=== PATIENT | male | born 1945 | race Caucasian/White ===

== ENCOUNTER 2019-03-27 19:01 | Inpatient (IN) | payer MEDICARE, OTHER ==
[~2019-03-27] VITALS: Ht 180.3 cm; Wt 76.9 kg
[~2019-03-27 19:01] MED LIST: HYDROCODONE-AP1 EAC6 PO; TAMIFLU45 MG PO; TUSSIONEX PENN473 ML PO; VENTOLIN17 GM INH
[2019-03-27 19:04] VITALS: BP 102/59
[2019-03-27] MEDS ORDERED: CARBIDOPA-LEVO1 EA10 PO (19:09)
[2019-03-27 19:38] LABS: ABSOLUTE EOSINOPHILS 0.1 thou/uL (0.0-0.7); ABSOLUTE LYMPHOCYTES 1.2 thou/uL (0.8-5.3); ABSOLUTE MONOCYTES 0.5 thou/uL (0.0-1.2); BASOPHILS 0.6 %; EOSINOPHILS 1.5 %; HEMATOCRIT 40.2 % (42.0-52.0); HEMOGLOBIN 13.4 gm/dL (14.0-18.0); MCH 30.7 pg (26.0-34.0); MCHC 33.4 g/dL (28.0-37.0); MCV 91.7 fL (80.0-100.0); MONOCYTES 8.8 %; MPV 7.4 fl. (7.2-11.1); NUCLEATED RBCS 0 /100WBC; PLATELET COUNT* 223 thou/uL (150-400); POLYS 69.1 %; RBC 4.38 mil/uL (4.50-6.00); RDW-CV 13.2 % (10.5-14.5); WBC 5.8 thou/uL (4.0-11.0)
[2019-03-27 19:42] LABS: URINE BILIRUBIN NEGATIVE (Negative); URINE BLOOD NEGATIVE (Negative); URINE CLARITY CLEAR; URINE COLOR YELLOW; URINE GLUCOSE-RANDOM NEGATIVE (Negative); URINE KETONES 1+ (Negative); URINE LEUKOCYTES-REFLEX NEGATIVE (Negative); URINE NITRITE-REFLEX NEGATIVE (Negative); URINE PROTEIN NEGATIVE (Negative); URINE SPECIFIC GRAVITY 1.025 (1.005-1.030); URINE UROBILINOGEN 0.2 E.U./dl (0.2-1.0)
[2019-03-27 19:44] LABS: CALCIUM 8.7 mg/dL (8.5-10.1); CREATININE 1.1 mg/dL (0.6-1.3); POTASSIUM 4.1 mmol/L (3.5-5.1)
[2019-03-27 19:45] LABS: PROTIME 10.7 Seconds (9.20-11.50)
[2019-03-27 19:54] LABS: ALBUMIN 3.8 g/dL (3.4-5.0); TOTAL BILIRUBIN 0.4 mg/dL (<0.1-1.0); TOTAL PROTEIN 6.7 g/dL (6.4-8.2)
[2019-03-27 23:14] VITALS: BP 121/58
[2019-03-28] VITALS (8 sets, daily range): BP systolic 112–142; BP diastolic 64–80
--- NOTE | 2019-03-28 04:59 | NUR ---
RECEIVED REPORT FROM ED RN. PT TRANSFERRED TO 215. PT A&OX4. 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 ADMISSION HISTORY & PHYSICAL ASSESSMENT COMPLETED AND CHARTED. PT ON RA. PT TRACING SR/BBB ON TELE. SKIN TEAR TO LEFT HAND CLEANED & PAT DRY, PHOTOGRAPH TAKEN & COVERED WITH MEPILEX. PT TURNED TO SIDES. CALL LIGHT WITHIN REACH.
--- NOTE | 2019-03-28 12:59 | NUR ---
PT A/O. TELE TRACKING SR WITH BBB AND ALL VSS ON ROOM AIR. DENIES CP, SOA. MULTIPLE FAMILY MEMBERS AT BEDSIDE. EDUCATED ON SAFETY AND PLAN OF CARE. PLEASE SEE ASSESSMENT FOR ADDITIONAL INFORMATION. WILL CONT TO MONITOR
--- NOTE | 2019-03-28 15:14 | NUR ---
Pt out of room when CM went to assess, will f/u later
--- NOTE | 2019-03-28 17:12 | 2DMMODE ---
[place] [address] 2 D/M-MODE ECHOCARDIOGRAM Name: BRENDAN KIRKPATRICK Room: [address] IN [facility]#: [id number] Admission: 03/27/19 Attend Phys: Jessie Villalpando, Discharge: Date of : 43 Date of Service: 03/28/19 1711 Report #: [id number] THIS REPORT FOR: //name// APPROVED REPORT Study performed: 03/28/2019 14:04:56 EXAM: Comprehensive 2D, Doppler, and color-flow Echocardiogram Patient Location: In-Patient Room #: [facility] [place] BSA: 2.15 HR: 70 bpm Other Information Study Quality: Good Indications Syncope 2D Dimensions IVSd: 9.18 (7-11mm) LVOT Diam: 20.69 (18-24mm) LVDd: 50.87 mm PWd: 11.92 (7-11mm) Ascending Ao: 34.56 (22-36mm) LVDs: 24.90 (25-40mm) Aortic Root: 38.52 mm Volumes Left Atrial Volume (Systole) LA ESV Index: 17.80 mL/m2 Aortic Valve AoV Peak Jin.: 1.14 m/s AO Peak Gr.: 5.22 mmHg LVOT Max P.41 mmHg AO Mean Gr.: 2.87 mmHg LVOT Mean P.90 mmHg LVOT Max V: 1.05 m/s AO V2 VTI: 21.55 cm LVOT Mean V: 0.62 m/s SARBJIT (VTI): 2.91 cm2 LVOT V1 VTI: 18.66 cm Mitral Valve E/A Ratio: 0.70 MV Decel. Time: 321.15 ms MV E Max Jin.: 0.55 m/s MV PHT: 93.13 [place] [address] 2 D/M-MODE ECHOCARDIOGRAM Name: BRENDAN KIRKPATRICK Room: [address]#: [id number] Admission: 03/27/19 Attend Phys: Jessie Villalpando, Discharge: Date of : 43 Date of Service: 03/28/19 1711 Report #: [id number] MVA (PHT): 2.36 cm2 TDI E/Lateral E': 9.17 E/Medial E': 6.11 Medial E' Jin.: 0.09 m/s Lateral E' Jin.: 0.06 m/s Pulmonary Valve PV Peak Jin.: 0.86 m/s PV Peak Gr.: 2.93 mmHg Left Ventricle The left ventricle is normal size. There is normal LV segmental wall motion. There is normal left ventricular wall thickness. Left ventricular systolic function is normal. The left ventricular ejection fraction is within the normal range. LVEF is 55-60%. Grade I - abnormal relaxation pattern. Right Ventricle The right ventricle is normal size. The right ventricular systolic function is normal. Atria The left atrium size is normal. The right atrium size is normal. Aortic Valve Aortic valve is mildly calcified. No aortic regurgitation is present. There is no aortic valvular stenosis. Mitral Valve The mitral valve is normal in structure. There is no mitral valve regurgitation noted. No evidence of mitral valve stenosis. Tricuspid Valve The tricuspid valve is normal in structure. There is no tricuspid valve regurgitation noted. Pulmonic Valve The pulmonary valve is normal in structure. There is no pulmonic valvular regurgitation. Great Vessels The aortic root is normal in size. IVC is normal in size and collapses >50% with inspiration[place] [address] 2 D/M-MODE ECHOCARDIOGRAM Name: BRENDAN KIRKPATRICK Room: [address]#: [id number] Admission: 03/27/19 Attend Phys: Jessie Villalpando, Discharge: Date of : 43 Date of Service: 03/28/19 1711 Report #: [id number] There is no pericardial effusion. <Conclusion> The left ventricle is normal size. There is normal left ventricular wall thickness. Left ventricular systolic function is normal. The left ventricular ejection fraction is within the normal range. LVEF is 55-60%. Grade I - abnormal relaxation pattern. The right ventricle is normal size. The left atrium size is normal. Aortic valve is mildly calcified. No aortic regurgitation is present. There is no aortic valvular stenosis. The mitral valve is normal in structure. The tricuspid valve is normal in structure. IVC is normal in size and collapses >50% with inspiration. There is no pericardial effusion. There is normal LV segmental wall motion. <ELECTRONICALLY SIGNED> By: Reji Awan MD, [facility] 03/28/191710 10 10 Reji Awan MD, FACC /INF
--- NOTE | 2019-03-28 17:15 | EKG ---
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1945 Requested By: Kathy Brantley Order Number: [id number] MD: Bolivar Verdin Measurements Intervals [place] Rate: 57 P: 59 IN: 58 QRS: -50 QRSD: 154 T: 32 QT: 457 QTc: 445 Interpretive Statements 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
[2019-03-29] VITALS: BP 146/40
--- NOTE | 2019-03-29 06:32 | NUR ---
PT HAS MAINTAINED SAFETY T/O NIGHT AND WITHOUT PAIN. PT PROGRESSING TOWARDS GOALS
[2019-03-29 07:00] VITALS: BP 141/75
[2019-03-29 08:44] VITALS: BP 141/75
[2019-03-29 12:00] VITALS: BP 121/78
--- NOTE | 2019-03-29 14:10 | NUR ---
cm discussed home situation w/pt's spouse Margarette, as pt was out of room for testing. Margarette states pt lives at home w/her. pt is retired, but active, "he cant sit sitll." pt has no hx w/snf or hh. pt has 0 dmes. no anticipated needs at this time. cm will cont to follow.
[2019-03-29 16:00] VITALS: BP 112/91
--- NOTE | 2019-03-29 16:58 | CARDNUC ---
[place] [address] CARDIAC NUCLEAR IMAGING REPORT Name: BRENDAN KIRKPATRICK Room: [address]#: [id number] Admission: 03/27/19 Attend Phys: Jessie Villalpando, Discharge: Date of : 43 Date of Service: 03/29/19 1658 Report #: [id number] THIS REPORT FOR: //name// APPROVED REPORT Study performed: 03/28/2019 14:46:00 Indication: Dyspnea, Syncope, weakness Patient Location: In-Patient Room #: [facility] Stress Tech: Coreen Suh Stress Nurse: Dodie Kasper RN Ht: 5 ft 11 in Wt: 169 lbs BSA: 1.96 m2 BMI: 23.56 Medical History Medical History: parkinsons Medications: no cardiac meds Allergies: rosuvastatin Cardiac Risk Factors: age, fmaily hx Previous Cardiac Procedures: none Exercise History: Sedentary Resting Data Rest SPECT myocardial perfusion imaging was performed in supine position 30 minutes following the intravenous injection of 11.4 mCi of Tc-99m Sestamibi. Time of rest injection: 09:05 The images were gated to evaluate regional wall motion and calculate left ventricular ejection fraction. Administration Route: IV Administration Site: Left AC Pharmacologic Stress Pharmacologic stress test was performed by injecting Regadenoson 0.4 mg IV push over 10-15 seconds immediately followed by the intravenous injection of 34.0 mCi of Tc-99m Sestamibi. Time of stress injection: 10:45 Administration Route: IV Administration Site: Left AC Heart Rate at time of stress injection: 96 bpm. Gated Stress SPECT was performed 40 minutes after stress injection. The images were gated to evaluate regional [place] [address] CARDIAC NUCLEAR IMAGING REPORT Name: BRENDAN KIRKPATRICK Room: [address]#: [id number] Admission: 03/27/19 Attend Phys: Jessie Villalpando, Discharge: Date of : 43 Date of Service: 03/29/19 1658 Report #: [id number] left ventricular ejection fraction. Prone imaging was performed. Stress Test Details Stress Test: Pharmacologic stress testing performed using 0.4 mg of regadenoson per 5 mL given IV over 10 seconds. Reason for pharmacologic stress test: physical limitation. HR Max Heart Rate (APMHR): 146 bpm Resting HR: 72 bpm Target HR (85% APMHR): 124 bpm Max HR Achieved: 96 bpm % of APMHR: 65 Recovery HR: 91 bpm BP Resting BP: 125/91 mmHg Max BP: 121/60 mmHg Recovery BP: 122/62 mmHg ECG Resting ECG: Sinus Rhythm, RBBB Stress ECG: Sinus Rhythm, RBBB ST Change: None Arrhythmia: None Recovery ECG: Sinus Rhythm, RBBB Recovery ST Change: None Recovery Arrhythmia: None Clinical Reason for Termination: Completed protocol Exercise duration: 0 min sec Exercise capacity: 1 METs The patient tolerated Lexiscan infusion without significant cardiac symptoms. Nurse Comments pt has parkinson's and so is unable to walk on treadmill Stress ECG Conclusion The baseline 12-lead EKG showed sinus rhythm with right bundle branch block without significant ST segment abnormalities. EKGs obtained during and post Lexiscan infusion showed sinus rhythm with no significant ST segment changes when compared to baseline. There were no stress-induced arrhythmias. Study Quality Study: [place] [address] CARDIAC NUCLEAR IMAGING REPORT Name: BRENDAN KIRKPATRICK Room: [address] IN [facility]#: [id number] Admission: 03/27/19 Attend Phys: Jessie Villalpando, Discharge: Date of : 43 Date of Service: 03/29/19 1658 Report #: [id number] Artifact: Moderate Diaphragmatic artifact Study Data At rest, the left ventricular ejection fraction was 59%.. Post stress, the left ventricular ejection was 62%.. TID = 1.11. Perfusion Perfusion images obtained in the supine position at rest and post Lexiscan stress showed a large region of photopenia involving the inferior wall the results completely with post stress prone imaging suggesting diaphragmatic attenuation artifact. No other significant fixed or reversible defects were identified. Wall Motion Normal left ventricular wall motion. Nuclear Conclusion ECG Findings: negative for ischemia Clinical Findings: negative for ischemia Nuclear Findings: negative for ischemia Exercise Capacity: not assessed Left Ventricular Function: normal Risk Study: low Myocardial perfusion images showed no defect to suggest infarct or ischemia. Left ventricular systolic function is normal on gated studies. This is a low risk study. <Conclusion> The baseline 12-lead EKG showed sinus rhythm with right bundle branch block without significant ST segment abnormalities. EKGs obtained during and post Lexiscan infusion showed sinus rhythm with no significant ST segment changes when compared to baseline. There were no stress-induced arrhythmias. <ELECTRONICALLY SIGNED> By: Bolivar Verdin MD, FACC 03/29/198 57 57 Bolivar Verdin MD, FACC /INF
[2019-03-29 20:00] VITALS: BP 127/74
[2019-03-30 00:08] VITALS: BP 144/84
[2019-03-30 04:00] VITALS: BP 152/91
[2019-03-30 08:00] VITALS: BP 143/78
[2019-03-30 12:19] VITALS: BP 119/75
[2019-03-30 13:11] VITALS: BP 119/75
--- NOTE | 2019-03-30 14:11 | NUR ---
DISCHARGE EDUCATION GIVEN, PT LEFT THE UNIT AT 1407 IN A WHEELCHAIR WITH HIS FAMILY.
--- NOTE | 2019-03-31 12:46 | CON ---
[address] [address] CONSULTATION Name: BRENDAN KIRKPATRICK Room: [address] IN .R.#: [id number] Admission: 03/27/19 Attend Phys: Jessie Villalpando MD Discharge: 03/30/19 Date of : 43 Report #: [id number] THIS REPORT FOR: //name// CC: Jessie Nolan DATE OF SERVICE: 03/28/2019 HISTORY OF PRESENT ILLNESS: This is a 73-year-old male patient who was seen by me to determine any neurological etiology for the patient's syncope. This patient was eating. He was sitting and he became pale. He became diaphoretic. He did not have any tonic-clonic activity and looks like he passed out for a short duration of time. The episode happened spontaneously. He may have some dizziness in the past, but never had this kind of episode before. He is back to his baseline. REVIEW OF SYSTEMS: Indicate the patient has been progressively losing memory. He had some pain in the neck area when it happened. He is becoming short of breath recently. He denies any prior history of stroke. He has not been diagnosed with dementia officially, but as I understand, they have suspected that because of progressive loss and memory, he does have a tendency to fall. He is not complaining of any new eye, ENT, GI, , musculoskeletal, constitutional, dermatological, hematological, psychiatric, throat, allergic symptom associated with present symptomatology. PAST MEDICAL HISTORY: Positive for memory loss. FAMILY HISTORY: Negative for any early age stroke. SOCIAL HISTORY: He has a very supportive family and he does not use any alcohol or smoke. PHYSICAL EXAMINATION: GENERAL: He is alert. He is responsive. His memory is poor, but that is his baseline. His speech, concentration, fund of knowledge and memory is intact. Cranial nerve examination 2-12 looks unremarkable. Strength, sensation, reflexes and tone appears symmetrical, although it is somewhat increased. He does have a history of Parkinson disease. I am not sure how established the diagnosis is. I could not look at the fundus. There is no meningeal sign. There is no thyroid mass. He is a reasonably well-developed individual, who does not have any dysmorphic features of eyes, ears and face. His vision and hearing looks intact. Cardiac examinations appear unremarkable. No respiratory difficulty was noticed. His blood pressure is 135/76, pulse is 83, temperature is 98.1, and respiration is 16. His blood pressure has fluctuated to some extent. He did have a CT scan of the head on admission that [place] [address] CONSULTATION Name: BRENDAN KIRKPATRCIK Room: [address]#: [id number] Admission: 03/27/19 Attend Phys: Jessie Villalpando MD Discharge: 03/30/19 Date of : 43 Report #: [id number] IMPRESSION: This patient does have underlying dementia. He had this episode which may be vasovagal episode or something related to his heart. History is not very clear and it is desirable to rule out the possibility of neurological etiology. I will get an MRI/MRA and an EEG done because of memory disturbances. I will add TSH, vitamin B12. Cardiology is consulted and he will undergo cardiac workup because cardiac etiology appear to be more likely. We will follow the patient with you. Thank you very much for this referral. <ELECTRONICALLY SIGNED> By: Ankit Camarillo MD 03/31/19 1246 1402 [id number] Camarillo MD /nt
== END 2019-03-30 13:40 | disposition home or self-care (01) | DRG 57 ==
LOC: M.ERS 19:01 → M.TBA-ER 22:09 → M.2W 22:20 → M.TBA-ER 22:20 → M.2W 23:15
PROVIDERS: Emergency Medicine; ADMIT Internal Medicine
DX: G91.2 (Idiopathic) normal pressure hydrocephalus (principal); J98.11 Atelectasis; G20 Parkinson's disease; G30.9 Alzheimer's disease, unspecified; F02.80 Dementia in other diseases classified elsewhere, unspecified severity, without behavioral disturbance, psychotic disturbance, mood disturbance, and anxiety; G31.9 Degenerative disease of nervous system, unspecified; N18.9 Chronic kidney disease, unspecified; E78.5 Hyperlipidemia, unspecified; Z88.8 Allergy status to other drugs, medicaments and biological substances; Z82.49 Family history of ischemic heart disease and other diseases of the circulatory system; Z79.899 Other long term (current) drug therapy

== ENCOUNTER 2020-06-04 08:34 | Emergency (ER) | payer MEDICARE, OTHER ==
[~2020-06-04] VITALS: Ht 172.7 cm; Wt 85.3 kg
[~2020-06-04 08:34] MED LIST changes: +CARBIDOPA-LEVO1 EA10 PO
[2020-06-04 09:24] LABS: ABSOLUTE EOSINOPHILS 0.1 thou/uL (0.0-0.7); ABSOLUTE LYMPHOCYTES 0.9 thou/uL (0.8-5.3); ABSOLUTE MONOCYTES 0.5 thou/uL (0.0-1.2); ABSOLUTE NEUTROPHILS 3.6 thou/uL (1.6-8.1); BASOPHILS 0.4 %; EOSINOPHILS 1.5 %; HEMATOCRIT 42.3 % (42.0-52.0); HEMOGLOBIN 14.1 gm/dL (14.0-18.0); LYMPHOCYTES 17.9 %; MCH 30.5 pg (26.0-34.0); MCHC 33.3 g/dL (28.0-37.0); MCV 91.6 fL (80.0-100.0); MONOCYTES 9.4 %; NUCLEATED RBCS 0 /100WBC; PLATELET COUNT* 214 thou/uL (150-400); POLYS 70.8 %; RBC 4.62 mil/uL (4.50-6.00); RDW-CV 13.5 % (10.5-14.5); WBC 5.1 thou/uL (4.0-11.0)
[2020-06-04 09:32] LABS: CALCIUM 9.5 mg/dL (8.5-10.1); CREATININE 1.1 mg/dL (0.6-1.3); POTASSIUM 3.8 mmol/L (3.5-5.1)
[2020-06-04 09:36] LABS: ALBUMIN 4.7 g/dL (3.4-5.0); TOTAL BILIRUBIN 0.6 mg/dL (<0.1-1.0); TOTAL PROTEIN 7.9 g/dL (6.4-8.2)
[2020-06-04] MEDS ORDERED: FLOMAX0.4 MG PO (10:36)
[2020-06-04] MEDS ORDERED: CIPROFLOXACIN500 M1 PO (10:36)
[2020-06-04 10:51] LABS: URINE BILIRUBIN NEGATIVE (Negative); URINE BLOOD NEGATIVE (Negative); URINE CLARITY CLEAR; URINE COLOR YELLOW; URINE GLUCOSE-RANDOM NEGATIVE (Negative); URINE KETONES NEGATIVE (Negative); URINE LEUKOCYTES-REFLEX NEGATIVE (Negative); URINE NITRITE-REFLEX NEGATIVE (Negative); URINE PROTEIN NEGATIVE (Negative); URINE UROBILINOGEN 0.2 E.U./dl (0.2-1.0)
[2020-06-04 10:54] VITALS: BP 117/64
--- NOTE | 2020-06-05 14:23 | EKG ---
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 : 1945 Requested By: Campos Edouard Order Number: [id number] MD: Reji Awan Measurements Intervals [place] Rate: 63 P: 41 [place]: 196 QRS: -48 QRSD: 159 T: 35 QT: 436 QTc: 447 Interpretive Statements Sinus rhythm RBBB and LAFB Baseline wander in lead(s) V5 Compared to ECG 03/27/2019 19:13:57 Short [place] interval no longer present Electronically Signed On 06-05-2020 14:23:46 HYDROGEN OPERATOR by Reji Awan [email or web address] <ELECTRONICALLY SIGNED> By: Reji Awan MD, [facility] 06/05/20 1423 2 Reji Awan MD, [facility] /EPI
== END 2020-06-04 10:54 | disposition home or self-care (01) ==
LOC: M.ERS 08:34
PROVIDERS: Family Medicine
DX: R33.9 Retention of urine, unspecified (principal); Z90.89 Acquired absence of other organs; Z79.899 Other long term (current) drug therapy; Z88.8 Allergy status to other drugs, medicaments and biological substances

== ENCOUNTER → 2020-11-12 | Outpatient (CLI) | payer MEDICARE, OTHER ==
[~2020-11-12] MED LIST changes: +CIPROFLOXACIN500 M1 PO; +FLOMAX0.4 MG PO; +OXYCODONE HCL 55 MG PO; +RIVASTIGMINE6 MG PO
[2020-11-12 11:18] LABS: ABSOLUTE EOSINOPHILS 0.1 thou/uL (0.0-0.7); ABSOLUTE LYMPHOCYTES 1.2 thou/uL (0.8-5.3); ABSOLUTE MONOCYTES 0.3 thou/uL (0.0-1.2); ABSOLUTE NEUTROPHILS 2.2 thou/uL (1.6-8.1); BASOPHILS 0.8 %; EOSINOPHILS 1.7 %; HEMATOCRIT 38.8 % (42.0-52.0); HEMOGLOBIN 13.4 gm/dL (14.0-18.0); LYMPHOCYTES 30.9 %; MCH 31.2 pg (26.0-34.0); MCHC 34.5 g/dL (28.0-37.0); MCV 90.4 fL (80.0-100.0); MONOCYTES 7.7 %; MPV 6.4 fl. (7.2-11.1); NUCLEATED RBCS 0 /100WBC; PLATELET COUNT* 229 thou/uL (150-400); POLYS 58.9 %; RBC 4.29 mil/uL (4.50-6.00); RDW-CV 13.6 % (10.5-14.5); WBC 3.7 thou/uL (4.0-11.0)
[2020-11-12 11:25] LABS: CALCIUM 9.2 mg/dL (8.5-10.1); CREATININE 0.8 mg/dL (0.6-1.3); POTASSIUM 4.2 mmol/L (3.5-5.1)
--- NOTE | 2020-11-12 15:48 | EKG ---
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
== END ==
LOC: M.LAB 11:05
PROVIDERS: ATTEND Surgery
DX: Z01.812 Encounter for preprocedural laboratory examination (principal)

== ENCOUNTER → 2020-11-15 | Day surgery (SDC) | payer MEDICARE, OTHER ==
--- NOTE | 2020-11-19 11:07 | PATH ---
[address] [address] PATHOLOGY RPT PROCEDURE Name: KAYABRENDAN Kasie Room: [facility].#: [id number] Admission: 11/15/20 Date of : 43 Discharge: Report #: [id number] Path Case #: [id number] [facility] Accession Number: [id number] . 01 Material submitted: . hernia - RIGHT HERNIA SAC. Modifiers: right . 01 Clinician provided ICD-10: 6 . 01 Clinical history: . RIGHT INGUINAL HERNIA . 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 . (ELVIS:mml; 11/18/2020) [facility] 11/18/2020 1627 Local . 02 Electronically signed: . Nelson Hardy MD, Pathologist NPI- [id number] . 01 Gross description: . Received in formalin labeled "Brendan Kirkpatrick, right hernia sac" is an irregular, hooker-pink membranous portion of soft tissue measuring 4.6 x 2.4 x 1.2 cm. The specimen is sectioned to reveal hooker-pink smooth lining without abnormalities grossly identified. Kerrick Kleaner Operator sections of the specimen are submitted in cassette A1.([facility]; 11/17/2020) GZA/GZA 11/17/2020 1058 Local . 02 Pathologist provided ICD-10: K40.90 . 02 CPT . 310993 Specimen Comment: A courtesy copy of this report has been sent to [phone] Specimen Comment: [id number] Specimen Comment: Report sent to / DR WADE Performed at: [address] [id number] MD Justin Mahmood MD Phone: [phone] Performed at: [address] [place] [address] PATHOLOGY RPT PROCEDURE Name: BRENDAN KIRKPATRICK Room: [facility]#: [id number] Admission: 11/15/20 Date of : 43 Discharge: Report #: [id number] Path Case #: [id number] [address] [place], [place] [id number] MD Nelson Hardy MD Phone: [phone]
== END | disposition home or self-care (01) ==
LOC: M.SUR 05:49
PROVIDERS: ATTEND Surgery
DX: K40.90 Unilateral inguinal hernia, without obstruction or gangrene, not specified as recurrent (principal); R10.9 Unspecified abdominal pain; G20 Parkinson's disease; G30.9 Alzheimer's disease, unspecified; F02.80 Dementia in other diseases classified elsewhere, unspecified severity, without behavioral disturbance, psychotic disturbance, mood disturbance, and anxiety; Z98.890 Other specified postprocedural states; Z79.899 Other long term (current) drug therapy; Z20.822 Contact with and (suspected) exposure to COVID-19; Z88.8 Allergy status to other drugs, medicaments and biological substances